=== PATIENT | female | born 1985 | race Two or more races ===

== ENCOUNTER 2016-12-25 08:47 | Inpatient (IN) | payer OTHER ==
[2016-12-25 10:04] VITALS: BMI 28.7
[2016-12-25 10:31] LABS: EOSINOPHIL 0.9 % (0-4.5); WHITE BLOOD COUNT 6.7 K/mm3 (4.0-10.0)
[2016-12-25 10:44] LABS: INR 0.89 (0.82-1.09); PROTHROMBIN TIME (PATIENT) 9.8 SEC (9.98-11.88)
[2016-12-25 10:45] LABS: BASOPHIL 0.7 % (0-2.0); MCH 30.2 pg (25.7-33.7); MCHC 33.5 g/dl (32.0-36.0); MEAN CELL VOLUME 90.2 fl (80-96); MEAN PLT VOLUME 11.5 fl (7.5-11.1); NEUTROPHILS 62.8 % (42.8-82.8); RDW 14.7 % (11.6-15.6)
[2016-12-25 10:46] LABS: ACTIVATED PTT 29.5 SECONDS (26.9-34.4)
[2016-12-25 10:52] LABS: ANION GAP 10 (8-16); CALCIUM 9.2 mg/dL (8.5-10.1); CO2 21 mmol/L (21-32); CREATININE 0.4 mg/dL (0.55-1.02); GLUCOSE,RANDOM 81 mg/dL (74-106)
[2016-12-25 11:33] LABS: PLATELET COMMENT2 NO CLOTTING DETECTED; PLATELET COUNT 65 K/MM3 (134-434); PLATELET ESTIMATE DECREASED (NORMAL)
[2016-12-25] MEDS ORDERED: DINOPROSTONE 10 MG VAGINAL SUPPOSITORY VG ONE (11:40)
[2016-12-25] MEDS ORDERED: BUTORPHANOL TARTRATE 1 MG/ML VIAL IVPB ONE (11:50)
[2016-12-25] MEDS ORDERED: PROMETHAZINE HCL 25 MG/1 ML VIAL IVPUSH ONE (11:50)
[2016-12-25] MEDS ORDERED: SODIUM PHOSPHATE/NA BIPHOS 133 ML ENEMA PR ONE (11:53)
--- NOTE | 2016-12-25 12:23 | HP ---
Past Medical History - Primary Care Physician PCP:: Shira Daugherty - Admission Chief Complaint: 31 yrs , 40.6 weeks by sono & 41.2 weeks by dates admitted for induction of labor History of Present Illness: PNC at 2, [facility] .wt gain 22 lbs 1st vist at 19 weeks Nt screen & Afp screen wqs not done work Up : O Pos, Rpr nr, Hbsag neg, Rubella pos, Sickle neg, Hiv nr, Quantiferon neg, Gbs neg , 1 hr Gtt 88. growth sono done by MFM. post term preg followed by BPP & NST last sono on 12/21/16 . 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 Weeks Gestation by Dates: 41.2 ...EDC by Dates: 12/16/16 ...EDC by Sono: 12/19/16 (40.6 weeks ) Heme/Onc: No: Anemia Infectious Disease: No: AIDS, HIV, STD's Psych: No: Addictions, Anxiety, Bipolar, Depression, Panic Endocrine: No: Diabetes Mellitus, Hyperthyroidism, Hypothyroidism - Past Surgical History Past Surgical History: Yes: None Hx Myomectomy: No Hx Transabdominal Cerclage: No - Smoking History Smoking history: Never smoked Have you smoked in the past 12 months: No - Alcohol/Substance Use Hx Alcohol Use: No History of Substance Use: reports: None Home Medications - Allergies Allergies/Adverse Reactions: Allergies Allergy/AdvReac Type Severity Reaction Status Date / Time No Known Allergies Allergy Verified 12/25/16 10:58 - Home Medications Home Medications: Ambulatory Orders Ferrous Sulfate 1 tab PO DAILY 12/19/16 Vit/Iron Fumarate/FA [ Tablet] 1 tab PO DAILY 12/19/16 Physical Exam - Maternity Vital Signs: Vital Signs Temperature 98.4 F 12/25/16 11:41 Pulse Rate 69 12/25/16 11:41 Respiratory Rate 20 12/25/16 11:41 Blood Pressure 133/70 12/25/16 11:41 O2 Sat by Pulse Oximetry (%) Selected Entries 12/25/16 09:15 Temperature 98.8 F Pulse Rate 72 Blood Pressure 139/67 Weight 147 lb Constitutional: Yes: Well Nourished, Obese Eyes: Yes: WNL HENT: Yes: WNL, Normocephalic Neck: Yes: WNL Cardiovascular: Yes: WNL, Regular Rate and Rhythm Lungs: Clear to auscultation Breast(s): Yes: WNL - Abdominal Exam/OB Fundal Height: 40 Number of Fetuses: Single Presentation: Vertex Regularity: Irregular Intensity: Unaware Monitor Mode: External Heart Rate (range): 135 Heart Rate Location: [facility] Category: I Accelerations: Uniform Decelerations: None - Vaginal Exam/OB Vaginal Bleediing: No Speculum Exam: No Dilatation (cm): close Effacement (%): unefface Amniotic Membrane Status: Intact Presentation: Vertex/Position Station: -3 - Physical Exam Musculoskeletal: Yes: WNL Extremities: Yes: WNL Edema: Yes Edema: LLE: 1+, RLE: 1+ Integumentary: Yes: WNL ...Motor Strength: WNL Psychiatric: Yes: WNL - Labs Lab Results: CBC, BMP 12/25/16 10:20 12/25/16 10:20 Laboratory Tests 12/25/16 10:20 INR 0.89 PTT (Actin FS) 29.5 Laboratory Tests 12/25/16 12/25/16 10:20 10:20 Uric Acid 4.0 Calcium 9.2 GGT 13 AST 19 ALT 20 Laboratory Tests 12/25/16 14:15 Urine Protein Negative Urine Glucose (UA) Negative Ur Leukocyte Esterase 3+ H Problem List - Problems (1) Post-term , 40-42 weeks of gestation Code(s): O48.0 - POST-TERM (2) Elective induction of labor planned Code(s): [id number] - (3) Thrombocytopenia affecting Code(s): O99.119 - OTH DIS OF BLD/BLD-FORM ORG/IMMUN MECHNSM COMP PREG,UNSP TRI D69.6 - THROMBOCYTOPENIA, UNSPECIFIED Assessment/Plan 31 yrs , 40.6 weeks by sono & 41 weeks by dates admitted for inductionof labor admission labs Thrmbocytopenia plt 65 is noted plan : Cervidil induction started at 11.40 am do HELLP work Up , U/A trial vag delivery
[2016-12-25 15:27] LABS: URINE APPEARANCE CLEAR; URINE BILIRUBIN NEGATIVE (NEGATIVE); URINE BLOOD NEGATIVE (NEGATIVE); URINE COLOR YELLOW; URINE GLUCOSE (UA) NEGATIVE (NEGATIVE); URINE KETONE NEGATIVE (NEGATIVE); URINE NITRITE NEGATIVE (NEGATIVE); URINE PROTEIN NEGATIVE (NEGATIVE); URINE UROBILINOGEN NEGATIVE E.U./dl (0.2-1.0)
[2016-12-25 15:28] LABS: URINE LEUK ESTERASE 3+ (NEGATIVE)
[2016-12-25 15:33] LABS: URINE MUCUS RARE; URINE RBC 5 /hpf (0-3); URINE WBC 7 /hpf (3-5)
--- NOTE | 2016-12-25 23:46 | PN ---
Progress Note (short form) - Note Progress Note: cervidil removed after 12 hrs uc irregular , mild to moderate 4 -8 min ,dysfunctional. FHr 140 cat-1 cx Ft, post/50 %/Mi /vx-3 Selected Entries 12/25/16 22:00 Temperature 98.2 F Pulse Rate 72 Blood Pressure 134/62 plan fleets enema shower after few hrs will revaluate for 2nd cervidil v/s pitocin induction Problem List - Problems (1) Post-term , 40-42 weeks of gestation Code(s): O48.0 - POST-TERM (2) Elective induction of labor planned Code(s): [id number] - (3) Thrombocytopenia affecting Code(s): O99.119 - OTH DIS OF BLD/BLD-FORM ORG/IMMUN MECHNSM COMP PREG,UNSP TRI D69.6 - THROMBOCYTOPENIA, UNSPECIFIED
[2016-12-26] MEDS: DEXTROSE 5%-LACTATED RINGERS 1,000 ML IV SCH ×3 (02:25→17:55)
[2016-12-26] MEDS ORDERED: OXYTOCIN 15 UNITS/ LR 250 ML 250 ML IVPB SCH (04:30)
--- NOTE | 2016-12-26 04:31 | PN ---
Progress Note (short form) - Note Progress Note: 4.30 am cx 1 cm/60 %/NH vx -3 . fhr 130-140 cat-1 uc irregular, mild Selected Entries 12/26/16 04:00 Temperature 98.0 F Pulse Rate 66 Blood Pressure 120/75 plan Pitocin induction Problem List - Problems (1) Post-term , 40-42 weeks of gestation Code(s): O48.0 - POST-TERM (2) Elective induction of labor planned Code(s): [id number] - (3) Thrombocytopenia affecting Code(s): O99.119 - OTH DIS OF BLD/BLD-FORM ORG/IMMUN MECHNSM COMP PREG,UNSP TRI D69.6 - THROMBOCYTOPENIA, UNSPECIFIED
[2016-12-26 07:02] LABS: BASOPHIL 0.4 % (0-2.0); EOSINOPHIL 0.5 % (0-4.5); MCH 29.7 pg (25.7-33.7); MCHC 33.2 g/dl (32.0-36.0); MEAN CELL VOLUME 89.5 fl (80-96); MEAN PLT VOLUME 10.7 fl (7.5-11.1); NEUTROPHILS 70.3 % (42.8-82.8); RDW 14.9 % (11.6-15.6); WHITE BLOOD COUNT 8.5 K/mm3 (4.0-10.0)
[2016-12-26 08:54] LABS: PLATELET COMMENT2 NO CLOTTING DETECTED; PLATELET COMMENT3 FEW LARGE PLTS; PLATELET COUNT 62 K/MM3 (134-434); PLATELET ESTIMATE DECREASED (NORMAL)
--- NOTE | 2016-12-26 10:06 | PN ---
Progress Note, Labor Vaginal Exam #1 Labor Exam Date: 12/26/16 Labor Exam Time: 09:48 Heart Rate (range): 130 Dilatation: 3 Effacement (%): 90 Amniotic Membrane Status: Ruptured (srom , large amount, clear) Presentation: Vertex/Position Station: -2 (-2/-1) Remarks: fhr cat-1 uc q2-4 min 8.00AM stadol 2 mg + phenrgan 25 mg iv stat Laboratory Tests 12/26/16 06:50 WBC 8.5 Hgb 12.8 Hct 38.6 Plt Count 62 L Neutrophils % 70.3 Lymphocytes % 17.2 D Monocytes % 11.6 H Eosinophils % 0.5 Selected Entries 12/26/16 12/26/16 08:00 09:09 Temperature 97.7 F Pulse Rate 64 68 Blood Pressure 125/62 113/59 Vaginal Exam #2 Labor Exam Date: 12/26/16 Labor Exam Time: 13:15 Heart Rate (range): 140 Dilatation: 5-6 Effacement (%): 100 Amniotic Membrane Status: Ruptured Presentation: Vertex/Position Station: -1 (-1/0) Remarks: fhr cat-1 uc 2-3 min 11.45 am stadol 1 mg + phenrgan 25 iv stat repeated Selected Entries 12/26/16 13:00 Temperature 98.8 F Pulse Rate 80 Blood Pressure 129/71 Vaginal Exam #3 Labor Exam Date: 12/26/16 Labor Exam Time: 14:15 Heart Rate (range): 140 Dilatation: 8 Effacement (%): 100 Amniotic Membrane Status: Ruptured Presentation: Vertex/Position Station: +1 Remarks: fhr cat-1 uc 2-5 min stadol1 mg + phenergan 25mg iv stat repeated Selected Entries 12/26/16 14:00 Temperature 97.8 F Pulse Rate 80 Blood Pressure 130/72 Vaginal Exam #4 Labor Exam Date: 12/26/16 Labor Exam Time: 16:00 Heart Rate (range): 140 Dilatation: 9 Effacement (%): 150-160 Amniotic Membrane Status: Ruptured Presentation: Vertex/Position Station: +1 Remarks: fhr cat-1 uc 2-4 min pt drowsy Selected Entries 12/26/16 15:01 Temperature 98.0 F Pulse Rate 98 H Blood Pressure 136/70 Laboratory Tests 12/26/16 12:55 WBC 10.7 H Hgb 12.6 Hct 38.5 Plt Count 58 L Neutrophils % 85.8 H D Lymphocytes % 5.4 L D Monocytes % 8.6 Vaginal Exam #5 Labor Exam Date: 12/26/16 Labor Exam Time: 17:20 Heart Rate (range): 120-140 Dilatation: 10 Effacement (%): 100 Amniotic Membrane Status: Ruptured Presentation: Vertex/Position Station: +2 Remarks: fhr cat-1 uc q2-4 Selected Entries 12/26/16 12/26/16 16:00 17:00 Temperature 99.7 F H 99.2 F Pulse Rate 83 90 Blood Pressure 134/64 144/71 Vaginal Exam #6 Labor Exam Date: 12/26/16 Labor Exam Time: 18:35 Heart Rate (range): 130-140 Dilatation: 10 Effacement (%): 100 Amniotic Membrane Status: Ruptured Presentation: Vertex/Position Station: +2 (+2/, caput enlarging) Remarks: Fhr cat2 , early decels uc 2-5 min pt was pushing, no descent is noted further vulva , vagina extremely edematous . is decided to abandon trial of labor delivery by primary c/section. anesthesiologist requests Plt transfusion prior to spinal anesthesia Selected Entries 12/26/16 18:03 Temperature 99.7 F H Pulse Rate 103 H Blood Pressure 129/60 preop for c/section, consent mojica catheter insert bicitra po
[2016-12-26] MEDS ORDERED: BUTORPHANOL TARTRATE 1 MG/ML VIAL IVPUSH PRN (10:07)
[2016-12-26] MEDS ORDERED: PROMETHAZINE HCL 25 MG/1 ML VIAL IVPB ONE (10:09)
[2016-12-26] MEDS ORDERED: PROMETHAZINE HCL 25 MG/1 ML VIAL IVPUSH ONE (13:21)
[2016-12-26] MEDS ORDERED: BUTORPHANOL TARTRATE 1 MG/ML VIAL IVPUSH ONE (14:00)
[2016-12-26 15:23] LABS: BASOPHIL 0.2 % (0-2.0); MCH 29.8 pg (25.7-33.7); MCHC 32.8 g/dl (32.0-36.0); MEAN CELL VOLUME 90.9 fl (80-96); MEAN PLT VOLUME 11.8 fl (7.5-11.1); NEUTROPHILS 85.8 % (42.8-82.8); PLATELET COUNT 58 K/MM3 (134-434); WHITE BLOOD COUNT 10.7 K/mm3 (4.0-10.0)
[2016-12-26 17:00] LABS: PLATELET ESTIMATE DECREASED (NORMAL)
[2016-12-26] MEDS ORDERED: CITRIC ACID/SODIUM CITRATE 30 ML UNIT-DOSE CUP PO ONE (18:50)
[2016-12-26] MEDS ORDERED: ELECTROLYTE-148 SOLN 1,000 ML IV SCH (19:00)
[2016-12-26] MEDS ORDERED: ACETAMINOPHEN 1000 MG/100 ML VIAL (NON FORMULARY) IVPB ONE (19:03)
[2016-12-26 20:22] LABS: ARTERIAL BLD GAS O2 SATURATION 33.2 % (90-98.9); ARTERIAL BLOOD GAS BASE EXCESS -1.8 meq/l (-2-2); ARTERIAL BLOOD GAS HCO3 26.2 meq/L (22-26); ARTERIAL BLOOD GAS pH 7.28 (7.35-7.45)
[2016-12-26 20:23] LABS: ARTERIAL BLOOD GAS PO2 17.9 mmHg (80-100)
[2016-12-26 20:27] LABS: VENOUS BLOOD GAS HCO3 23.1 meq/L (19-25); VENOUS PH 7.34 (7.32-7.42)
[2016-12-26] MEDS ORDERED: ONDANSETRON 4 MG/2 ML VIAL IVPB PRN (21:03)
[2016-12-26] MEDS ORDERED: METHYLERGONOVINE MALEATE 0.2 MG/1 ML AMP IM PRN (21:05)
[2016-12-26] MEDS ORDERED: SENNOSIDES/DOCUSATE COMBO (SENNA PLUS) TABLET (UD) PO PRN (21:05)
--- NOTE | 2016-12-26 21:20 | OP ---
Operative Note - Note: Operative Date: 12/26/16 Pre-Operative Diagnosis: 41 weeks,s/p induction of labor failure of descent in 2nd stage of labor Operation: Primary LFTC/Section Findings: 20.02 hrs Baby boy, 9/9, Vx , Lop position, 9/9, cord around neckx1 , wt 8'2", ht 21" Uterus atonic , Im Methergine, 40 Iu pitocin in OR was given both tubes & ovaries normal Dr Pickard Senior Teller was present in the OR Surgeon: Shira Daugherty Mechanical Designer: Brendon Zhang Anesthesiologist/WEIGHT ENGINEER: Ana Deleon Anesthesia: Spinal Specimens Removed: uterine culture. cord segment for cordblood gas. cord blood. placenta Estimated Blood Loss (mls): 1,200 Drains, Volume Out (mls): 275 (abimael color mojica output ) Blood Volume Replaced (mls): 1 (platelet preop ) Fluid Volume Replaced (mls): 2,500 (40 iu pitocin after baby , Im Methergine , IV 2gm Ancef prior to incision ) Operative Report Dictated: Yes
--- NOTE | 2016-12-26 21:33 | PN ---
Delivery - Delivery Section: Primary, Low Flap Transverse (Indication 41 weeks, s/p induction of labor, failure to descend in 2nd stage of labor) Type of Anesthesia: Spinal EBL (cc): 1,200 (mojica out put 250ml abimael color ) Delivery, Single - Stages of Labor Date 1st Stage Initiatied: 12/26/16 Time 1st Stage Initiated: 08:00 Date 2nd Stage Initiated: 12/26/16 Time 2nd Stage Initiated: 17:20 Date of Delivery: 12/26/16 Time of Delivery: 20:02 Date Placenta Delivered: 12/26/16 Time Placenta Delivered: 20:04 Placenta: Yes: Spontaneous, Uterine Exploration - Condition of Infant Bolt Header/Food Product Inspector Present: Yes Name: Linnea Pickard Gender: Male Weight: 8 lb 2 oz Position: Left, OP (cord around neckx1) Total Hours ROM (Hrs/Mins): 10 hrs 16 min - 5 Minutes Total Score: 9 1 Minute Total Score: 9 - [place] Feeding Plan Initial Plan: Elected not to breastfeed exclusively throughout hospitalization Remarks - Remarks Remarks: 31 yrs 41 weeks admitted on 12/25/16 for induction of labor pnc at [address] [place] [address] gbs neg cervidil insertion 12/25/16, followed by pitocin Induction on 12/26/16 Gestational thrombocytopenia was noted .Plt 58, prior to c/s One unit odf Plt transfusion prior to spinal anesthesia was completed Intraop Lo grade fever, T max 100.1 rx Iv Tylenol given. preincision 2 gm iv Ancef given Intaop : IV 40 iu Pitocin, & IM Methergine 0.2 mg given for atonic ut.
[2016-12-26] MEDS: D5W-LR W/ 20 UNITS OXYTOCIN 1,000 ML IV SCH (22:00)
[2016-12-27] MEDS: ACETAMINOPHEN 1000 MG/100 ML VIAL (NON FORMULARY) IVPB PRN ×2 (00:26→11:54)
[2016-12-27] MEDS: CEFAZOLIN (PRE-DOCKED) 50 ML IVPB SCH ×3 (02:19→17:22)
[2016-12-27] MEDS: D5W-LR W/ 20 UNITS OXYTOCIN 1,000 ML IV SCH ×3 (05:22→23:03)
[2016-12-27 07:34] LABS: BASOPHIL 0.2 % (0-2.0); EOSINOPHIL 0.2 % (0-4.5); MCH 30.1 pg (25.7-33.7); MCHC 33.1 g/dl (32.0-36.0); MEAN CELL VOLUME 90.8 fl (80-96); NEUTROPHILS 74.6 % (42.8-82.8); PLATELET COUNT 90 K/MM3 (134-434); RDW 14.9 % (11.6-15.6); WHITE BLOOD COUNT 10.7 K/mm3 (4.0-10.0)
--- NOTE | 2016-12-27 07:46 | PN ---
Progress Note (short form) - Note Progress Note: Anesthesia postop note,POD#1 S/P primary for failure of descending. Pat with induced thrombocytopenia. received Plt prior to surgery. Spinal performed atraumatic. Today pat seen and examined. VSS. Sensory and motoric intact. Plt:90 No apparent post anesthesia complications. signed off.
--- NOTE | 2016-12-27 07:46 | PN ---
Post Progress Note - Subjective Subjective: no c/o pain Post Day: 1 Type of Delivery: Primary C/S Vital Signs: Vital Signs Temperature 99.2 F 12/27/16 05:37 Pulse Rate 88 12/27/16 05:37 Respiratory Rate 18 12/27/16 06:59 Blood Pressure 103/47 12/27/16 05:37 O2 Sat by Pulse Oximetry (%) 99 12/26/16 21:40 Breast Exam: Yes: Soft, Other (plans to BF ). No: Engorged Uterus: Yes: Fundus Firm, Fundus below umbilicus, Non-tender Incision: Yes: Dressing dry and intact. No: Redness, Oozing Abdomen/GI: Yes: Abdomen soft, Tolerating PO (clear liqiuds ). No: Abdominal Distention, Tender, Passing flatus Lochia: Yes: Rubra Lochia, amount: Moderate Extremities: Yes: Calves non-tender Perineum: Yes: Intact Activity: Ambulating - Labs Labs: CBC WBC 10.7 K/mm3 (4.0-10.0) H 12/27/16 06:00 RBC 3.00 M/mm3 (3.60-5.2) L D 12/27/16 06:00 Hgb 9.0 GM/dL (10.7-15.3) L D 12/27/16 06:00 Hct 27.2 % (32.4-45.2) L D 12/27/16 06:00 MCV 90.8 fl (80-96) 12/27/16 06:00 MCHC 33.1 g/dl (32.0-36.0) 12/27/16 06:00 RDW 14.9 % (11.6-15.6) 12/27/16 06:00 Plt Count 90 K/MM3 (134-434) L D 12/27/16 06:00 MPV 10.0 fl (7.5-11.1) D 12/27/16 06:00 Neutrophils % 74.6 % (42.8-82.8) 12/27/16 06:00 Lymphocytes % 15.0 % (8-40) D 12/27/16 06:00 Monocytes % 10.0 % (3.8-10.2) 12/27/16 06:00 Eosinophils % 0.2 % (0-4.5) D 12/27/16 06:00 Basophils % 0.2 % (0-2.0) 12/27/16 06:00 Differential Comment Slide scanned 12/26/16 06:50 Platelet Estimate Decreased (NORMAL) 12/26/16 12:55 Platelet Comment Mod large plts 12/26/16 12:55 Platelet Comment No clotting detected 12/26/16 06:50 Retic Count 1.22 % (0.5-1.5) 12/25/16 10:20 Problem List - Problems (1) Post-term , 40-42 weeks of gestation Code(s): O48.0 - POST-TERM (2) Elective induction of labor planned Code(s): [id number] - (3) Thrombocytopenia affecting Code(s): O99.119 - OTH DIS OF BLD/BLD-FORM ORG/IMMUN MECHNSM COMP PREG,UNSP TRI D69.6 - THROMBOCYTOPENIA, UNSPECIFIED Assessment/Plan anemia post op . Plt count improved plan encourage ambulation , odeep breathing , po fluids
[2016-12-27] MEDS: PRENATAL VITAMINS W/ FOLIC ACID TABLET (FP) PO SCH (09:50)
[2016-12-27] MEDS ORDERED: oxyCODONE HCL 5 MG TABLET PO PRN (10:00)
--- NOTE | 2016-12-27 17:49 | OP ---
DATE OF OPERATION: 12/26/2016 PREOPERATIVE DIAGNOSIS: 41 weeks, status post induction of labor, failure of descent in 2nd phase of labor, and gestational thrombocytopenia. OPERATION: Primary low-transverse section. SURGEON: Shira Daugherty MD TAX INVESTIGATOR SURGEON: Brendon Zhang MD ANESTHESIOLOGIST: Adrienne Perez MD ANESTHESIA: Spinal. FINDINGS: This is a 31-year-old, 1, para 0, 41 weeks, was induced with Cervidil on December 25, followed by Pitocin induction on December 26. Patient was fully dilated and pushing for 1-1/2 hours and there was no more descent and +2 station and caput large with marked edema of the vulva and vagina noted, so it was decided to abandon the trial of labor and proceed with a section. Prior to surgery, patient had a temperature of 100.1. IV Tylenol was given by anesthesiologist, and her platelet count was 58,000, so 1 unit of platelets was transfused before spinal anesthesia given. PROCEDURE: Abdomen was shaved, prepped, Koenig catheter was placed, and she was taken to the operating room table. Spinal anesthesia was given. She was placed in supine position. The abdomen was painted and draped in the usual manner. Pfannenstiel incision was made through skin and subcutaneous tissue. Anterior rectus sheath was incised transversely. Bleeding points were clamped and cauterized. Then the rectus muscle was from the rectus sheath. Parietal peritoneum was opened vertically. Lower flap parietal peritoneum was identified and it was incised transversely. Bladder was pushed down. Lower uterine segment was incised transversely, and the baby was delivered at 8:02 p.m. from LOP position. Cord around the neck was noted times once, which was released, and the rest of the baby's body was delivered. Baby was immediately oral suctioned and nasal suction was done. Cord was clamped, cut. Dr. Linnea Pickard, fish dressing machine feeder, was present in the room, and the baby was handed over to her. A baby boy, was 9/9, baby's weight was 8 pounds 2 ounces. Then cord segment also was sent for the cord blood gases, which were normal later on, and the cord blood was collected. Placenta was removed completely with the membranes as soon as the baby was delivered. Anesthesiologist was requested to start IV Pitocin and give IM Methergine to the patient. The uterus was still atonic and lax so 40 units of Pitocin was continued, and 1000 mL of Plasmalyte. Bimanual massage was give, then the uterine cavity was clean. Uterine incision was isolated and was closed in 2 layers. The 1st layer was closed with Biosyn 0 continuous locking sutures, 2nd layer was a continuous intermittent locking with vertical mattress sutures, and Biosyn suture was used. Hemostasis was verified. Now the uterus was firm. The lower segment was still boggy. Then irrigation was done. Uterus was placed back into the peritoneal cavity. Both tubes and ovaries were normal. Bladder peritoneum was identified and it was closed with a Biosyn 0 suture again. Sponge, instrument, needle count was correct. Then closure of the abdomen was done. Parietal peritoneum was closed with 0 Vicryl suture. Muscles were approximated together with interrupted Vicryl 0 sutures, and anterior rectus sheath was closed with a Vicryl 0 suture before that underneath the anterior rectus sheath flap hemostasis was verified. Subcutaneous tissue hemostasis was verified. Subcutaneous tissue was approximated with a Biosyn 0 suture. The skin was approximated with diana. Patient tolerated the procedure well. Pressure dressing was given. The blood clots were expressed out from the uterus. Vagina was cleaned of blood clots. Estimated blood loss was 1200 mL intraoperatively. Urine output intraoperatively was 275 mL and it was abimael color. Preoperatively she received 2 g of IV Ancef and intraoperatively uterine culture was taken after the delivery of the baby, and it was sent to the lab. She received 2500 of crystalloid solution and IM Methergine and 40 units Pitocin intraoperatively. She was transferred to the recovery room in stable condition. Haven [id number]
[2016-12-27] MEDS ORDERED: BISACODYL 10 MG SUPP.RECT RC PRN (21:05)
[2016-12-27] MEDS: SIMETHICONE 80 MG TAB.CHEW (FP) PO PRN (21:42)
[2016-12-27] MEDS: FERROUS SO4 325 MG TABLET (FP) PO SCH (21:42)
[2016-12-27] MEDS: oxyCODONE HCL 5 MG TABLET PO PRN (21:43)
[2016-12-27] MEDS: IBUPROFEN 600 MG TABLET (FP) PO PRN (21:43)
[2016-12-27] MEDS: ACETAMINOPHEN 325 MG TABLET (FP) PO PRN (21:44)
[2016-12-27] MEDS ORDERED: DIPHTH,PERTUSS(ACELL),TET 0.5 ML DISP.SYRIN IM ONE (22:00)
[2016-12-28] MEDS: IBUPROFEN 600 MG TABLET (FP) PO PRN (07:09)
[2016-12-28] MEDS: oxyCODONE HCL 5 MG TABLET PO PRN (07:10)
[2016-12-28] MEDS: ACETAMINOPHEN 325 MG TABLET (FP) PO PRN (07:10)
[2016-12-28] MEDS: SIMETHICONE 80 MG TAB.CHEW (FP) PO PRN (07:11)
[2016-12-28] MEDS: FERROUS SO4 325 MG TABLET (FP) PO SCH ×2 (09:25→22:26)
[2016-12-28] MEDS: PRENATAL VITAMINS W/ FOLIC ACID TABLET (FP) PO SCH (09:25)
--- NOTE | 2016-12-28 10:46 | PN ---
Post Progress Note - Subjective Subjective: no complains pain scale 6/10 Post Day: 2 Type of Delivery: Primary C/S Vital Signs: Vital Signs Temperature 97.9 F 12/28/16 09:57 Pulse Rate 84 12/28/16 09:57 Respiratory Rate 20 12/28/16 09:57 Blood Pressure 132/77 12/28/16 09:57 O2 Sat by Pulse Oximetry (%) 99 12/26/16 21:40 Breast Exam: Yes: Soft, Other (no milk yet, bottle feeding ). No: Engorged Uterus: Yes: Fundus Firm, Fundus below umbilicus, Non-tender Incision: Yes: Panda intact. No: Redness, Oozing Abdomen/GI: Yes: Abdomen soft, Passing flatus, Tolerating PO (diet ). No: Abdominal Distention, Tender Lochia: Yes: Rubra Lochia, amount: Moderate Extremities: Yes: Calves non-tender Perineum: Yes: Intact Activity: Ambulating - Labs Labs: CBC WBC 10.7 K/mm3 (4.0-10.0) H 12/27/16 06:00 RBC 3.00 M/mm3 (3.60-5.2) L D 12/27/16 06:00 Hgb 9.0 GM/dL (10.7-15.3) L D 12/27/16 06:00 Hct 27.2 % (32.4-45.2) L D 12/27/16 06:00 MCV 90.8 fl (80-96) 12/27/16 06:00 MCHC 33.1 g/dl (32.0-36.0) 12/27/16 06:00 RDW 14.9 % (11.6-15.6) 12/27/16 06:00 Plt Count 90 K/MM3 (134-434) L D 12/27/16 06:00 MPV 10.0 fl (7.5-11.1) D 12/27/16 06:00 Neutrophils % 74.6 % (42.8-82.8) 12/27/16 06:00 Lymphocytes % 15.0 % (8-40) D 12/27/16 06:00 Monocytes % 10.0 % (3.8-10.2) 12/27/16 06:00 Eosinophils % 0.2 % (0-4.5) D 12/27/16 06:00 Basophils % 0.2 % (0-2.0) 12/27/16 06:00 Differential Comment Slide scanned 12/26/16 06:50 Platelet Estimate Decreased (NORMAL) 12/26/16 12:55 Platelet Comment Mod large plts 12/26/16 12:55 Platelet Comment No clotting detected 12/26/16 06:50 Retic Count 1.22 % (0.5-1.5) 12/25/16 10:20 Haptoglobin 120 mg/dL (34-200) 12/25/16 10:20 Problem List - Problems (1) Post-term , 40-42 weeks of gestation Code(s): O48.0 - POST-TERM (2) Elective induction of labor planned Code(s): [id number] - (3) Thrombocytopenia affecting Code(s): O99.119 - OTH DIS OF BLD/BLD-FORM ORG/IMMUN MECHNSM COMP PREG,UNSP TRI D69.6 - THROMBOCYTOPENIA, UNSPECIFIED Assessment/Plan stable anemia Plan encourage po fluids, OOB, deep breathing
--- NOTE | 2016-12-29 05:15 | PN ---
Post Progress Note - Subjective Subjective: feels good, no dizziness Post Day: 3 Type of Delivery: Primary C/S Vital Signs: Vital Signs Temperature 99.0 F 12/28/16 21:29 Pulse Rate 84 12/28/16 21:29 Respiratory Rate 20 12/28/16 21:29 Blood Pressure 123/74 12/28/16 21:29 O2 Sat by Pulse Oximetry (%) 99 12/26/16 21:40 Breast Exam: Yes: Soft Uterus: Yes: Fundus Firm Incision: Yes: [place] intact Abdomen/GI: Yes: Abdomen soft Lochia: Yes: Rubra Lochia, amount: Small Extremities: Yes: Calves non-tender Perineum: Yes: Intact Activity: Ambulating - Labs Labs: CBC WBC 10.7 K/mm3 (4.0-10.0) H 12/27/16 06:00 RBC 3.00 M/mm3 (3.60-5.2) L D 12/27/16 06:00 Hgb 9.0 GM/dL (10.7-15.3) L D 12/27/16 06:00 Hct 27.2 % (32.4-45.2) L D 12/27/16 06:00 MCV 90.8 fl (80-96) 12/27/16 06:00 MCHC 33.1 g/dl (32.0-36.0) 12/27/16 06:00 RDW 14.9 % (11.6-15.6) 12/27/16 06:00 Plt Count 90 K/MM3 (134-434) L D 12/27/16 06:00 MPV 10.0 fl (7.5-11.1) D 12/27/16 06:00 Neutrophils % 74.6 % (42.8-82.8) 12/27/16 06:00 Lymphocytes % 15.0 % (8-40) D 12/27/16 06:00 Monocytes % 10.0 % (3.8-10.2) 12/27/16 06:00 Eosinophils % 0.2 % (0-4.5) D 12/27/16 06:00 Basophils % 0.2 % (0-2.0) 12/27/16 06:00 Differential Comment Slide scanned 12/26/16 06:50 Platelet Estimate Decreased (NORMAL) 12/26/16 12:55 Platelet Comment Mod large plts 12/26/16 12:55 Platelet Comment No clotting detected 12/26/16 06:50 Retic Count 1.22 % (0.5-1.5) 12/25/16 10:20 Haptoglobin 120 mg/dL (34-200) 12/25/16 10:20 Assessment/Plan oob continue pp care reg diet pain meds
[2016-12-29 07:55] LABS: BASOPHIL 0.2 % (0-2.0); EOSINOPHIL 0.4 % (0-4.5); MEAN CELL VOLUME 90.7 fl (80-96); MEAN PLT VOLUME 10.4 fl (7.5-11.1); NEUTROPHILS 80.3 % (42.8-82.8); PLATELET COUNT 96 K/MM3 (134-434); RDW 15.1 % (11.6-15.6)
[2016-12-29] MEDS: FERROUS SO4 325 MG TABLET (FP) PO SCH ×2 (10:04→21:12)
[2016-12-29] MEDS: PRENATAL VITAMINS W/ FOLIC ACID TABLET (FP) PO SCH (10:04)
--- NOTE | 2016-12-30 07:58 | DS ---
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: Vital Signs Temperature 97.9 F 12/29/16 22:00 Pulse Rate 76 12/29/16 22:00 Respiratory Rate 20 12/29/16 22:00 Blood Pressure 127/77 12/29/16 22:00 O2 Sat by Pulse Oximetry (%) 99 12/26/16 21:40 Constitutional: Yes: Well Nourished, Pallor Eyes: Yes: WNL HENT: Yes: WNL, Other (c/o headache sometimes) Neck: Yes: WNL Cardiovascular: Yes: WNL Respiratory: Yes: WNL, CTA Bilaterally Gastrointestinal: Yes: WNL, Normal Bowel Sounds, Soft, Other (bm done) ....Post : Yes: Uterus firm, Uterus non-tender, Moderate lochia rubra ( perineum intact) Breast(s): Yes: WNL (breast & bottle feeding) Musculoskeletal: Yes: WNL Extremities: Yes: WNL. No: Calf Tenderness Edema: Yes Edema: LLE: 1+, RLE: 1+ Wound/Incision: Yes: Clean/Dry, Well Approximated, Steri Strips, Open to air, [place] Removed. No: Draining, Reddened, Bleeding Neurological: Yes: WNL, Alert, Oriented ...Motor Strength: WNL Psychiatric: Yes: WNL, Alert, Oriented Labs: CBC, BMP 12/29/16 07:30 12/25/16 10:20 Delivery - Delivery Section: Primary, Low Flap Transverse (Indication 41 weeks, s/p induction of labor, failure to descend in 2nd stage of labor) Type of Anesthesia: Spinal Episiotomy/Laceration: None EBL (cc): 1,200 (mojica out put 250ml abimael color ) Delivery, Single - Stages of Labor Date 1st Stage Initiatied: 12/26/16 Time 1st Stage Initiated: 08:00 Date 2nd Stage Initiated: 12/26/16 Time 2nd Stage Initiated: 17:20 Date of Delivery: 12/26/16 Time of Delivery: 20:02 Time Placenta Delivered: 20:04 Placenta: Yes: Spontaneous, Uterine Exploration - Condition of 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: Yes Name: Linnea Pickard Infant Gender: Male Weight: 8 lb 2 oz Position: Left, OP (cord around neckx1) Total Hours ROM (Hrs/Mins): 10 hrs 16 min - 5 Minutes Total Score: 9 1 Minute Total Score: 9 - [place] Feeding Plan Initial Plan: Elected not to breastfeed exclusively throughout hospitalization Remarks - Remarks Remarks: 31 yrs 41 weeks admitted on 12/25/16 for induction of labor pnc at [address] [place] [address] gbs neg cervidil insertion 12/25/16, followed by pitocin Induction on 12/26/16 Gestational thrombocytopenia was noted .Plt 58, prior to c/s One unit of Plt transfusion prior to spinal anesthesia was completed Intraop Lo grade fever, T max 100.1 rx Iv Tylenol given. preincision 2 gm iv Ancef given Intaop : IV 40 iu Pitocin, & IM Methergine 0.2 mg given for atonic ut. Post op course was uneventful anemia counselled, rx po iron & pnv, & high iron diet recommended Po Plt count improved to 96 . she will follow in clinic in 2 weeks Discharge Summary Reason For Visit: CERVIDIL INDUCTION Current Active Problems Anemia (Acute) Delivery by emergency section (Acute) Elective induction of labor planned (Acute) Failure of descent in labor, delivered, current hospitalization (Acute) Post-term , 40-42 weeks of gestation (Acute) Thrombocytopenia affecting (Acute) Condition: Stable - Instructions Diet, Activity, Other Instructions: Post Instructions DIET: Continue good diet high in protein, calcium, and iron rich foods. Drink at least eight (8) glasses of water daily in addition to other fluids. ___ Regular diet MEDICATIONS: Continue vitamins and iron as previously directed. Motrin and Tylenol may be taken for minor discomfort. ACTIVITY: Mild to moderate exercise may be started in two (2) weeks. Take frequent rest periods. Resume normal activity after six (6) week check up. WOUND CARE OF OPERATIVE SITE: Continue use of perineal bottle until vaginal discharge stops. Keep area clean. Shower daily. Keep abdominal wound dry. Report any drainage or redness to physician. Tub baths, tampons and douches are not permitted for [address] Breast feeding & or Bottle feeding BREAST CARE: (For those that are not breast feeding): If engorgement occurs: Wear tight fitting bra. Take Tylenol or Motrin for pain. Apply cold packs (ice in bags to each breast ) FAMILY PLANNING: There are many control alternatives to pursue and they should be discussed at your first office visit. You may resume sexual activity after your six (6) week check up. (Remember, breast feeding is not a contraceptive) NEXT PHYSICIAN APPOINTMENT: Be certain to call for a one (1) week appointment, unless otherwise directed. Call Clinic or got to Emergency Dept if you have any of the following: Heavy vaginal bleeding Painful urination Leg pain Unusual odor noted to vaginal bleeding High fever Red streaking noted on breast Referrals: Shira Daugherty MD [Staff Physician] - Disposition: HOME - Home Medications Comprehensive Discharge Medication List: Ambulatory Orders Ferrous Sulfate 1 tab PO DAILY 12/19/16 Vit/Iron Fumarate/FA [ Tablet] 1 tab PO DAILY 12/19/16 Acetaminophen [Tylenol .Regular Strength -] 650 mg PO Q4H PRN #0 tablet Ferrous Sulfate [Feosol] 325 mg PO BID #60 tab 12/29/16 Ibuprofen [Motrin -] 600 mg PO Q4H PRN #30 tablet 12/29/16 Vitamins (Sjr) - 1 tab PO DAILY #30 tablet 12/29/16
[2016-12-30] MEDS: PRENATAL VITAMINS W/ FOLIC ACID TABLET (FP) PO SCH (09:36)
[2016-12-30] MEDS: FERROUS SO4 325 MG TABLET (FP) PO SCH (09:36)
[2016-12-30 09:57] VITALS: BP 135/78; PULSE 72; TEMP 98.3
--- NOTE | 2016-12-31 13:07 | PATH ---
Surgical Pathology Report Patient Name: ISAAC MUSTAFA Med. Rec. 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 Specimen(s) Received PLACENTA Clinical History , 41 weeks gestation Primary c/section Final Diagnosis PLACENTA, DELIVERY: FOCALLY DISRUPTED THIRD TRIMESTER PLACENTA WITH MILD CHRONIC DECIDUITIS, MILD TO MODERATE INCREASE IN PREVILLOUS, PERIVILLOUS, AND PRECHORIONIC FIBRIN DEPOSITION, THREE VESSEL UMBILICAL CORD, AND PLACENTAL MEMBRANES WITH FOCAL AMNION HYPERPLASIA AND MILD MECONIUM HISTIOCYTOSIS. Electronically Signed Jesus Bartlett M.D. Gross Description The specimen is received fresh, labeled "placenta" and is a 522 gram, 18.5 x 17.5 x 1.8 cm placenta with attached membranes and umbilical cord. The attached membranes are daugherty, translucent with focal opacities and insert marginally. The umbilical cord measures 15 cm in length and averages 1.3 cm in diameter. The cord inserts eccentrically, 5.5 cm. to the nearest margin. No true knots or strictures are identified. Cut surface of the umbilical cord reveals 3 vessels. The surface is galvin-green, meconium stained with moderate fibrin deposition and appropriate caliber vessels. The maternal surface is red-brown with focal defects. Sectioning reveals brown, spongy parenchyma. No focal lesions are identified. 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 12/30/201612/30/2016
== END 2016-12-30 10:30 | disposition home or self-care (01) | DRG 540 ==
LOC: JLDR 08:47 → J3W 12-26 22:21
PROVIDERS: ADMIT Obstetrics & Gynecology; ATTEND Obstetrics & Gynecology
PROC: 3E0P7GC Introduction of Other Therapeutic Substance into Female Reproductive, Via Natural or Artificial Opening (ICD-10-PCS; 2016-12-25)
PROC: 10D00Z1 Extraction of Products of Conception, Low, Open Approach (ICD-10-PCS; principal; 2016-12-26)
PROC: 30233R1 Transfusion of Nonautologous Platelets into Peripheral Vein, Percutaneous Approach (ICD-10-PCS; 2016-12-26)
DX: O62.1 Secondary uterine inertia (principal); O99.113 Other diseases of the blood and blood-forming organs and certain disorders involving the immune mechanism complicating pregnancy, third trimester; D69.6 Thrombocytopenia, unspecified; Z3A.41 41 weeks gestation of pregnancy; O99.013 Anemia complicating pregnancy, third trimester; O48.0 Post-term pregnancy; Z37.0 Single live birth
CPT/HCPCS: 36415; 36430; 36600; 80048; 81003; 81015; 82803; 82977; 83010; 84450; 84460; 84550; 85025; 85044; 85610; 85730; 86593; 86850; 86900; 86901; 87070; 87205; 88307-TC; 90715; P9034